=== PATIENT | female | born 1995 | race Caucasian/White ===

== ENCOUNTER → 2017-05-18 | Outpatient (CLI) | payer OTHER ==
[2017-05-22 03:03] LABS: CHLAMYDIA TRACH RNA*** NOT DETECTED (NOT DETECTED); GC (NEIS GONORRHOEAE)RNA** NOT DETECTED (NOT DETECTED)
== END | disposition home or self-care (01) ==
LOC: C.LABSPEC 13:45
PROVIDERS: ATTEND Physician Assistant
DX: Z01.419 Encounter for gynecological examination (general) (routine) without abnormal findings (principal)